=== PATIENT | male | born 1995 | race Caucasian/White ===

== ENCOUNTER 2021-05-10 16:09 | Outpatient (CLI) | payer OTHER ==
[2021-05-11 07:59] LABS: SARS-CoV-2 PCR by NAA Not Detected (NotDetected)
== END 2021-05-10 16:10 | disposition home or self-care (01) ==
LOC: LABBT 16:09
PROVIDERS: ATTEND Student in an Organized Health Care Education/Training Program
DX: Z01.812 Encounter for preprocedural laboratory examination (principal); Z20.822 Contact with and (suspected) exposure to COVID-19
CPT/HCPCS: U0003; U0005

== ENCOUNTER 2021-05-15 07:03 | Day surgery (SDC) | payer OTHER ==
[2021-05-14 11:21] VITALS: BMI 26.9
[2021-05-15] MEDS ORDERED: Acetaminophen 500 MG TAB ONE (08:25)
[2021-05-15] MEDS ORDERED: Oxymetazoline HCl 0.05% (30 ML BOT) ONE ×2 (08:25→08:57)
[2021-05-15] MEDS ORDERED: Lidocaine 1% w/Epinephrine 1:100K 20 ML VIAL ONE (08:56)
[2021-05-15] MEDS ORDERED: Bacitracin Zinc Ointment 30 gm TUBE ONE (08:57)
[2021-05-15] MEDS ORDERED: Fentanyl 250 MCG/5 ML VIAL ONE (09:03)
[2021-05-15] MEDS ORDERED: Propofol 1,000 MG/100 ML VIAL IV ONE (09:04)
[2021-05-15] MEDS ORDERED: ePHEDrine 50 MG/ML VIAL ONE (09:07)
[2021-05-15] MEDS ORDERED: Rocuronium Bromide 10 MG/ML (10ML VIAL) ONE (09:07)
[2021-05-15] MEDS ORDERED: PROPOFOL 200 MG/20 ML VIAL ONE (09:07)
[2021-05-15] MEDS ORDERED: Dexamethasone 20 MG/5 ML VIAL ONE (09:07)
[2021-05-15] MEDS ORDERED: Ondansetron PF 4 MG/2 ML Vial ONE (09:07)
[2021-05-15] MEDS ORDERED: Ketorolac Tromethamine 30 MG/ML VIAL ONE (09:07)
[2021-05-15] MEDS ORDERED: Lidocaine 1% PF 5 ML VIAL ONE (09:07)
[2021-05-15] MEDS ORDERED: HYDROcodone/Acetaminophen 5/325 mg Tablet ONE (11:57)
== END 2021-05-15 13:00 | disposition home or self-care (01) ==
LOC: SDC 07:03
PROVIDERS: ATTEND Student in an Organized Health Care Education/Training Program
PROC: 09SM0ZZ Reposition Nasal Septum, Open Approach (ICD-10-PCS; principal; 2021-05-15)
PROC: 09QK0ZZ Repair Nasal Mucosa and Soft Tissue, Open Approach (ICD-10-PCS; principal; 2021-05-15)
PROC: 09TL0ZZ Resection of Nasal Turbinate, Open Approach (ICD-10-PCS; principal; 2021-05-15)
DX: J34.2 Deviated nasal septum (principal); J34.3 Hypertrophy of nasal turbinates; J34.89 Other specified disorders of nose and nasal sinuses; J30.9 Allergic rhinitis, unspecified; Z86.16 Personal history of COVID-19; Z79.899 Other long term (current) drug therapy; Z88.0 Allergy status to penicillin
CPT/HCPCS: C1889; J1100; J1885; J2405; J2704; J3010; J3490